=== PATIENT | female | born 2000 | race Two or more races ===

== ENCOUNTER 2019-06-30 13:11 | Observation (INO) | payer MEDICAID ==
[~2019-06-30] VITALS: Ht 167.6 cm; Wt 96.4 kg
--- NOTE | 2019-06-30 13:52 | NUR ---
PT RESTING IN BED, C/O DIFFUSE ABD PAIN AND NAUSEA WITHOUT EMESIS. DENIES ANY FEVERS OR OTHER S/S. CALL LIGHT IN REACH. ERP AT BEDSIDE FOR EVAL.
[2019-06-30] MEDS ORDERED: MAALOX/HYOSCYAMINE/LIDOCAINE 45 ML BTL ONE (13:56)
[2019-06-30] MEDS ORDERED: ONDANSETRON ODT 4 MG ONE (13:56)
--- NOTE | 2019-06-30 13:59 | NUR ---
PT TO ULTRASOUND AT THIS TIME.
[2019-06-30] MEDS ORDERED: ONDANSETRON ODT 4 MG PO ONE (14:00)
[2019-06-30] MEDS ORDERED: MAALOX/HYOSCYAMINE/LIDOCAINE 45 ML BTL PO ONE (14:00)
[2019-06-30 14:06] LABS: MICROSCOPIC NOT IND
[2019-06-30 14:18] LABS: CULTURE INDICATED? NO
--- NOTE | 2019-06-30 14:18 | NUR ---
pt returned from u/s, lab at bedside.
[2019-06-30 14:30] LABS: BASOPHILS # (AUTO) 0.05 x10^3/uL (0-0.3); BASOPHILS % (AUTO) 1 % (0-1); EOSINOPHILS # (AUTO) 0.08 x10^3/uL (0-0.8); EOSINOPHILS % (AUTO) 1 % (1-7); LYMPHOCYTES # (AUTO) 1.53 x10^3/uL (1-6.1); LYMPHOCYTES % (AUTO) 17 % (22-44); MD NO; MEAN CORPUSCULAR HEMOGLOBIN 28.3 pg (27.0-34.8); MEAN CORPUSCULAR HGB CONC 32.9 g/dL (32.4-35.8); MONOCYTES # (AUTO) 0.48 x10^3/uL (0-1.4); MONOCYTES % (AUTO) 5 % (2-9); NEUTROPHILS # (AUTO) 6.96 x10^3/uL (1.8-8.0); NEUTROPHILS % (AUTO) 76 % (42-75); PLATELET COUNT 254 x10^3/uL (130-400); RED BLOOD COUNT 5.15 x10^6/uL (3.82-5.3); RED CELL DISTRIBUTION WIDTH 13.4 % (9.6-15.2)
[2019-06-30 14:41] LABS: ALANINE AMINOTRANSFERASE 18 U/L (12-78); ALBUMIN 3.8 g/dL (3.4-5.0); ANION GAP 5 mmol/L (5-15); CALCIUM 8.5 mg/dL (8.5-10.1); CHLORIDE 110 mmol/L (98-107); CREATININE 0.69 mg/dL (0.55-1.02)
[2019-06-30 14:45] LABS: ALKALINE PHOSPHATASE 65 U/L (45-117); BILIRUBIN,TOTAL 0.5 mg/dL (0.2-1.0); TOTAL PROTEIN 6.9 g/dL (6.4-8.2)
--- NOTE | 2019-06-30 15:17 | NUR ---
PT TEARY AND STATES SHE CONTINUES TO HAVE ABDOMINAL PAIN. AWAITING MD RE=ESSIE
[2019-06-30] MEDS ORDERED: LORazepam 2 MG/ML, 1ML IVPush ONE (15:30)
[2019-06-30] MEDS ORDERED: SODIUM CHLORIDE 0.9% 1,000ML IVBOLUS ONE (15:30)
[2019-06-30] MEDS ORDERED: SODIUM CHLORIDE FLUSH 10ML SYR IVF ONE (16:00)
--- NOTE | 2019-06-30 16:00 | NUR ---
VOMITED BILEOUS MATERIAL. MEDS REQUESTED FOR SAME
[2019-06-30] MEDS ORDERED: ONDANSETRON 2MG/ML, 2ML IVPush ONE (16:30)
[2019-06-30] MEDS ORDERED: ONDANSETRON 2MG/ML, 2ML ONE ×2 (16:40→20:09)
[2019-06-30] MEDS ORDERED: MORPHINE SULFATE 4 MG/ML, 1ML ONE ×2 (16:41→18:05)
[2019-06-30] MEDS: MORPHINE SULFATE 4 MG/ML, 1ML IVPush PRN ×2 (16:43→18:07)
--- NOTE | 2019-06-30 16:47 | NUR ---
MEDICATED PER MAR AND TO CT
[2019-06-30] MEDS ORDERED: D5%-0.45% NACL 1,000 ML IV ONE (17:27)
--- NOTE | 2019-06-30 17:27 | NUR ---
pt aware of intention for surgery/appendectomy. WHO form completed and pt taking all clothes off.
[2019-06-30] MEDS ORDERED: CEFOTETAN PMX 1GM/50ML 50 ML IV ONE (17:30)
[2019-06-30] MEDS ORDERED: MORPHINE SULFATE 4 MG/ML, 1ML IVPush PRN (17:30)
[2019-06-30] MEDS ORDERED: ONDANSETRON 2MG/ML, 2ML IVPush PRN (17:30)
--- NOTE | 2019-06-30 17:55 | NUR ---
REPORT TO YING CHAUDHARY. PT TO BE TRANSFERED TO FLOOR
[2019-06-30] MEDS ORDERED: CEFOTETAN PMX 1GM/50ML 50 ML ONE (17:58)
[2019-06-30 18:24] VITALS: BP 119/72
[2019-06-30] MEDS ORDERED: SODIUM CHLORIDE FLUSH 10ML SYR IVF PRN (18:30)
[2019-06-30] MEDS ORDERED: BUPIVACAINE/EPI 0.5% 1:200K ONE (19:20)
[2019-06-30] MEDS ORDERED: MIDAZOLAM 1 MG/ML, 2ML ONE (19:37)
[2019-06-30] MEDS ORDERED: FENTANYL PF 250 MCG/5ML ONE (19:37)
[2019-06-30] MEDS ORDERED: BUPIVACAINE/EPI 0.5% 1:200K INFIL ONE (19:43)
[2019-06-30] MEDS ORDERED: SUGAMMADEX 200 MG/2 ML IVPush ONE (20:09)
[2019-06-30] MEDS ORDERED: EPHEDRINE 50 MG/ML, 1ML ONE (20:09)
[2019-06-30] MEDS ORDERED: KETOROLAC 30 MG/1 ML ONE (20:09)
[2019-06-30] MEDS ORDERED: LIDOCAINE-MPF 2% ,5ML ONE (20:09)
[2019-06-30] MEDS ORDERED: DEXAMETHASONE 4 MG/ML, 1ML ONE (20:09)
[2019-06-30] MEDS ORDERED: PROPOFOL 10 MG/ML, 20ML ONE (20:09)
[2019-06-30] MEDS ORDERED: ROCURONIUM 10MG/ML,5ML ONE (20:09)
[2019-06-30] MEDS ORDERED: hydrALAzine 20 MG/ML, 1ML IV PRN (20:30)
[2019-06-30] MEDS ORDERED: OXYcodone 5 MG/5 ML ORAL.SOL UDC PO PRN (20:30)
[2019-06-30] MEDS ORDERED: FENTANYL PF 100 MCG/2ML IV PRN (20:30)
[2019-06-30] MEDS ORDERED: PROMETHAZINE 25 MG/ML, 1ML IV PRN (20:30)
[2019-06-30] MEDS ORDERED: ACETAMINOPHEN 325 MG TABLET PO PRN (20:30)
[2019-06-30] MEDS ORDERED: HALOPERIDOL 5 MG/ML IV PRN (20:30)
[2019-06-30] MEDS ORDERED: HYDROmorphone 2 MG/ML, 1ML IVPush PRN (20:30)
[2019-06-30] MEDS ORDERED: MEPERIDINE/PF 25MG/ML,1ML IVPush PRN (20:30)
[2019-06-30] MEDS ORDERED: MEPERIDINE/PF 25MG/ML,1ML ONE (20:53)
[2019-06-30] MEDS ORDERED: LACTATED RINGERS 1,000 ML IV SCH (23:00)
[2019-06-30] MEDS: ACETAMINOPHEN 500 MG TABLET PO SCH (23:06)
[2019-07-01 02:03] VITALS: BP 110/59
[2019-07-01] MEDS: KETOROLAC 30 MG/1 ML IVPush SCH ×2 (03:56→10:45)
[2019-07-01] MEDS: ACETAMINOPHEN 500 MG TABLET PO SCH ×2 (04:41→10:45)
[2019-07-01] MEDS: OXYcodone IR 5MG TABLET PO PRN ×2 (04:41→07:26)
[2019-07-01 08:03] VITALS: BP 110/45
[2019-07-01] MEDS ORDERED: OXYC-302 PO (11:25)
== END 2019-07-01 12:16 | disposition home or self-care (01) ==
LOC: ED 15:29 → EDIP 17:27 → INTOOBSV 17:27 → 4NW 18:20 → DCLOUNGE 07-01 11:55
PROVIDERS: ADMIT Surgery; ATTEND Surgery
DX: K35.80 Unspecified acute appendicitis (principal)
CPT/HCPCS: 36415; 44970; 74177; 76700; 80053; 81003; 83690; 84703; 85025; 88304; 96365; 96375; 96376; 99284; G0378; J1100; J1885; J2175; J2250; J2270; J2405; J2704; J3010; J3490; J7120; Q0162; 96374